=== PATIENT | female | born 2000 | race Caucasian/White ===

== ENCOUNTER → 2019-11-18 | Outpatient (CLI) | payer BC ==
[2019-11-18 12:15] VITALS: BP 93/47
--- NOTE | 2019-11-18 12:15 | ER RDC ASSESSMENT REPORT ---
Intake - In the Last 14 days Have you traveled outside [place]?: No Have you been in close contact with someone CONFIRMED: No Worked in Healthcare?: No - Symptoms Subjective Fever([place] feverish): Yes Chills: Yes Muscule Aches: Yes Runny Nose: Yes Sore Throat: Yes Cough (New or worsening chronic cough): Yes Shortness of breath: Yes Nausea or Vomiting: Yes Headache: Yes Abdominal Pain: No Diarrhea(3 or more loose stools in last 24 hours): No - Do you have any of the following Chronic lung disease: Asthma or emphysema or COPD: No Cystic Fibrosis: No Diabetes: No High Blood Pressure: No Cardiovascular Disease: No Chronic Kidney Disease: No Chronic Liver Disease: No Chronic blood disorder like Sickle Cell Disease: No Weak immune system due to disease or medication: No Neurologic condition that limits movement: No Developmental delay - Moderate to Severe: No Recent (within past 2 weeks) or current : Yes --If current: Trimester: 1st Comment: He is not sure if she is states missed her period has not been to OB at this point Obesity Comment: Height 5 feet weight 90 pounds Other Comment: History of PTSD and OCD - Objective Temperature: 98.5 F Pulse Rate: 90 Respiratory Rate: 20 Blood Pressure: 93/47 O2 Sat by Pulse Oximetry: 98 Objective: Given above, testing performed: If Testing Performed: Test Specimen Type Sent to General - General Information source: Patient Notes: Patient reports started to feel ill on November 14 respiratory like symptoms shortness of breath sore throat and dry cough. Not sure if pregnanent. Has missed a period and has not been to an OB provider at this point. [facility] typically goes to Urgent Care for Primary care and has an appointment for tomorrow. [place] worse today and went to the ED. Bp noted as 93/47. patient reports BP usually higher. Denies nausea or vomiting. Past Medical History - Social History Smoking Status: Current Every Day Smoker Cigarette use (# per day): No - Smokes marijuana Physical Exam - General General appearance: Appears well, Alert In distress: None Notes: PHYSICAL EXAMINATION: GENERAL: Well-appearing and in no acute distress. HEAD: Atraumatic, normocephalic. EYES: sclera anicteric, conjunctiva are normal. ENT: nares patent. Moist mucous membranes. Lips appear dry and cracked. NECK: Normal range of motion, supple without lymphadenopathy LUNGS: CTAB and equal. No wheezes rales or rhonchi. resp even and unlabored. Lung sounds clear. HEART: Regular rate and rhythm without murmurs ABDOMEN: Soft, nontender, normal bowel sounds, no guarding. EXTREMITIES: No cyanosis. NEUROLOGICAL: Normal speech. PSYCH: Normal mood, normal affect. SKIN: Warm, Dry, normal turgor, Diagnostic Results Laboratory Results: Patient instructed on negative rapid strep and negative rapid flu results. Pending strep culture pending COVID testing results. Patient given instructions regarding COVID to include; as a person under investigation for Covid 19, the [facility], division of public health advises you to adhere to the following guidance until your test results are reported to you. If your test result is positive, you will receive additional information from your provider and your local health department at that time. Remain at home until you are cleared by the health provider or public health authorities. Keep a log of visitors to your home, notify any visitors to your home of your isolation status. If you plan to move to a new address or leave the county, notify the local health department in your County. Call your doctor or seek care if you have an urgent medical need. Before seeking medical care, call ahead to get instructions from the provider before arriving at the medical office clinic or hospital. Notify them that you are being tested for the virus that causes Covid 19 so that arrangements can be made, as necessary, to prevent transmission to others in the healthcare setting. Next, notify the local health department in your county. If a medical emergency arises and you need to call 911, inform the first responders that you are being tested for the virus that causes Covid 19. Next, notify the local health department in your county. Patient Education/Counseling Counseling/Education: Patient presents with upper respiratory symptoms worrisome for possible Covid 19. Patient does not have emergency worring symptoms such as difficulty breathing, shortness of breath, chest pain, pressure, confusion or cyanosis. Patient appears suitable for discharge. Patient instructed to return to ED for persistent or worsening symptoms. Instructed to follow up with OB as well. Patient's vital signs are stable and patient is nontoxic in appearance. Good return precautions have been discussed with patient, patient verbalized understanding and is agreeable with discharge plan of care at this time. C Discharge - Discharge Clinical Impression: COVID - 19 SCREENING Upper respiratory infection Qualifiers: URI type: unspecified URI Qualified Code(s): J06.9 - Acute upper respiratory infection, unspecified Condition: Stable Disposition: Home; Selfcare
[2019-11-18 14:07] LABS: A TYPE INFLUENZA AG NEGATIVE (NEGATIVE); B INFLUENZA AG NEGATIVE (NEGATIVE)
== END ==
LOC: RDC 11:06
PROVIDERS: ATTEND Nurse Practitioner Family
DX: J06.9 Acute upper respiratory infection, unspecified (principal); Z20.828 Contact with and (suspected) exposure to other viral communicable diseases; R50.9 Fever, unspecified; J02.9 Acute pharyngitis, unspecified; R05 Cough; R06.02 Shortness of breath; M79.10 Myalgia, unspecified site; R09.89 Other specified symptoms and signs involving the circulatory and respiratory systems; R51 Headache; R11.11 Vomiting without nausea; F12.90 Cannabis use, unspecified, uncomplicated
CPT/HCPCS: 87070; 87635; 87804; 87880

== ENCOUNTER 2019-12-27 14:56 | Emergency (ER) | payer BC ==
[2019-12-27] MEDS ORDERED: ACETAMINOPHEN 325 MG TABLET PO ONE (15:36)
--- NOTE | 2019-12-27 15:38 | ER Document Report ---
ED Medical Screen (RME) - General Chief Complaint: Flank Pain Stated Complaint: LEFT FLANK PAIN,PAINFUL URINATION Time Seen by Provider: 12/27/19 15:33 Primary Care Provider: ROCK CARPENTER [Primary Care Provider] - Follow up as needed Mode of Arrival: Ambulatory Information source: Patient Notes: 19-year-old female presented to ED for complaint of left flank pain. She states she has had a history of kidney stones since she was 10 years old. She states her last CT was about 2 years ago. She states she has been having the pain and nausea and vomiting off and on for 3 weeks. She states she has not had any vomiting today. She is not nauseated at this time. She is alert oriented respirations regular nonlabored speaking in full sentences. She states she does not smoke or drink but that she does use pot. States her last menstrual period was December 22. I have greeted and performed a rapid initial assessment of this patient. A comprehensive ED assessment and evaluation of the patient, analysis of test results and completion of medical decision making process will be conducted by an additional ED providers. - Related Data Allergies/Adverse Reactions: levofloxacin [From Levaquin] Allergy (Verified 12/27/19 15:32) Penicillins Allergy (Verified 12/27/19 15:32) Past Medical History - Social History Chew tobacco use (# tins/day): No Frequency of alcohol use: None Drug Abuse: Marijuana Physical Exam - Vital signs Vitals: Temp Pulse Resp BP Pulse Ox 99.0 F 90 16 112/73 97 12/27/19 15:28 12/27/19 15:28 12/27/19 15:28 12/27/19 15:28 12/27/19 15:28 Course - Vital Signs Vital signs: Temp Pulse Resp BP Pulse Ox 99 F 90 16 112/73 97 12/27/19 15:33 12/27/19 15:28 12/27/19 15:28 12/27/19 15:28 12/27/19 15:28 Doctor's Discharge - Discharge Referrals: ROCK CARPENTER [Primary Care Provider] - Follow up as needed
[2019-12-27 16:11] LABS: ABSOLUTE EOSINOPHILS # (AUTO) 0.2 10^3/uL (0.0-0.6); ABSOLUTE LYMPHOCYTES (AUTO) 1.8 10^3/uL (0.5-4.7); ABSOLUTE MONOCYTES (AUTO) 0.5 10^3/uL (0.1-1.4); ABSOLUTE NEUT (AUTO) 2.5 10^3/uL (1.7-8.2); BASOPHILS % (AUTO) 0.8 % (0-2); EOSINOPHILS % (AUTO) 3.6 % (0-6); HEMATOCRIT 39.5 % (36.0-47.0); LYMPHOCYTES % (AUTO) 36.2 % (13-45); MEAN CORPUSCULAR HEMOGLOBIN 28.2 pg (27.0-33.4); MEAN CORPUSCULAR VOLUME 85 fl (80-97); MONOCYTES % (AUTO) 8.9 % (3-13); PLATELET COUNT 244 10^3/uL (150-450); RED BLOOD COUNT 4.62 10^6/uL (3.72-5.28); RED CELL DISTRIBUTION WIDTH 14.6 % (11.5-14.0); SEGMENTED NEUTROPHILS % (AUTO) 50.5 % (42-78); TOTAL CELLS COUNTED % (AUTO) 100 %; WHITE BLOOD COUNT 5.1 10^3/uL (4.0-10.5)
[2019-12-27 16:26] LABS: APPEARANCE,URINE CLOUDY; BILIRUBIN,URINE NEGATIVE (NEGATIVE); COLOR,URINE YELLOW; GLUCOSE, URINE NEGATIVE (NEGATIVE); KETONES,URINE TRACE mg/dL (NEGATIVE); LEUKOCYTE ESTERASE,URINE SMALL (NEGATIVE); NITRITE,URINE NEGATIVE (NEGATIVE); PROTEIN,URINE 100 mg/dL (NEGATIVE); URINE SPECIFIC GRAVITY 1.025
[2019-12-27 16:30] LABS: ALBUMIN 4.3 g/dL (3.5-5.0); ALKALINE PHOSPHATASE 74 U/L (38-126); ANION GAP 8 (5-19); ASPARTATE AMINO TRANSFERASE 18 U/L (14-36); BILIRUBIN,TOTAL 0.4 mg/dL (0.2-1.3); BLOOD UREA NITROGEN 8 mg/dL (7-20); CALCIUM 9.4 mg/dL (8.4-10.2); CARBON DIOXIDE 29 mmol/L (22-30); CHLORIDE 101 mmol/L (98-107); GLUCOSE 101 mg/dL (75-110); POTASSIUM 4.4 mmol/L (3.6-5.0)
[2019-12-27] MEDS ORDERED: CEFTRIAXONE 1 GM/D5W RTU 1 GM/50 ML RTUPB IV ONE (18:00)
--- NOTE | 2019-12-27 18:00 | ER Document Report ---
ED GI/ - General Chief Complaint: Flank Pain Stated Complaint: LEFT FLANK PAIN,PAINFUL URINATION Time Seen by Provider: 12/27/19 15:33 Primary Care Provider: ROCK CARPENTER [NO LOCAL MD] - Follow up as needed Mode of Arrival: Ambulatory Notes: CHIEF COMPLAINT: Left flank pain for 3 weeks HPI: 19-year-old female with a history of UTIs and kidney stones presenting to the emergency department complaining of progressively worsening left flank pain over the last 3 weeks. Patient states it does not feel like a kidney stone pain is been progressive she did feel like she had a bladder infection 1.5 weeks ago when she took Azo for this with some resolution of symptoms. Has not had fever nausea vomiting but having progressively worsening left lower quadrant left flank discomfort similar to prior kidney infections. ROS: See HPI - all other systems were reviewed and are otherwise negative Constitutional: no fever Eyes: no drainage, no blurred vision ENT: no runny nose, no sore throat Cardiovascular: no chest pain Resp: no SOB, no cough GI: no vomiting, no diarrhea, + abdominal pain : no dysuria Integumentary: no rash Allergy: no hives Musculoskeletal: no extremity pain or swelling Neurological: no incontinence of urine or bowel MEDICATIONS: I agree with the patient medications as charted by the RN. ALLERGIES: I agree with the allergies as charted by the RN. PAST MEDICAL HISTORY/PAST SURGICAL HISTORY: Reviewed and agree as charted by RN. SOCIAL HISTORY: Reviewed and agree as charted by RN. FAMILY HISTORY: No significant familial comorbid conditions directly related to patient complaint EXAM: Reviewed vital signs as charted by RN. CONSTITUTIONAL: Alert and oriented and responds appropriately to questions. Well-appearing; well-nourished HEAD: Normocephalic; atraumatic EYES: PERRL; Conjunctivae clear, sclerae non-icteric ENT: normal nose; no rhinorrhea; moist mucous membranes; pharynx without lesions noted, no uvula edema or deviation, no tonsillar hypertrophy, phonation normal NECK: Supple without meningismus; non-tender; no cervical lymphadenopathy, no ma sses CARD: RRR; no murmurs, no clicks, no rubs, no gallops; symmetric distal pulses RESP: Normal chest excursion without splinting or tachypnea; breath sounds clear and equal bilaterally; no wheezes, no rhonchi, no rales, pulse oximetry 97% on room air not hypoxic ABD/GI: Normal bowel sounds; non-distended; soft, mild tenderness to the left lower quadrant left flank on palpation, no rebound, no guarding; no palpable organomegaly or masses. BACK: The back appears normal and is non-tender to palpation, there is mild left CVA tenderness EXT: Normal ROM in all joints; non-tender to palpation; no cyanosis, no effusions, no edema SKIN: Normal color for age and race; warm; dry; good turgor; no acute lesions noted NEURO: Moves all extremities equally; Motor and sensory function intact PSYCH: The patient's mood and manner are appropriate. Grooming and personal hygiene are appropriate. MDM: 19-year-old female with history of UTI kidney stone and kidney infections presenting with left flank pain progressively worsening over the last 3 weeks. Clinically has pyelonephritis. Her lab work obtained in the triage process does not show evidence of significant leukocytosis or renal impairment. She does appear to have a UTI. Discussed at length with the patient. She is allergic to Levaquin and also to penicillins. Has never had Rocephin per the patient. We will give her Rocephin here in the emergency department she would prefer no imaging today if possible. She is aware we cannot completely rule out a renal abscess at this time although she has no high fever tachycardia or leukocytosis suggesting this. She is aware if her condition does worsen even on antibiotics that she will need to return for reevaluation and probable imaging studies. Patient is in agreement with this plan - Related Data Allergies/Adverse Reactions: levofloxacin [From Levaquin] Allergy (Verified 12/27/19 15:32) Penicillins Allergy (Verified 12/27/19 15:32) Past Medical History - General Information source: Patient - Social History Smoking Status: Never Smoker Chew tobacco use (# tins/day): No Frequency of alcohol use: None Drug Abuse: Marijuana Family History: Reviewed & Not Pertinent Patient has homicidal ideation: No Physical Exam - Vital signs Vitals: Temp Pulse Resp BP Pulse Ox 99.0 F 90 16 112/73 97 12/27/19 15:28 12/27/19 15:28 12/27/19 15:28 12/27/19 15:28 12/27/19 15:28 Course - Re-evaluation Re-evalutation: 12/27/19 18:25 Patient has had no reaction to the Rocephin. Will discharge to stay on Keflex. Patient incidentally mentions that for several months she has been having discharge from the nipples bilaterally with no breast pain or skin changes. No headache. There are is a large differential for this. We discussed this at length. She will follow-up with [facility] for further evaluation of this issue. We specifically discussed return instructions regarding the flank pain and pyelonephritis - Vital Signs Vital signs: Temp Pulse Resp BP Pulse Ox 99 F 90 16 112/73 97 12/27/19 15:33 12/27/19 15:28 12/27/19 15:28 12/27/19 15:28 12/27/19 15:28 - Laboratory Result Diagrams: 12/27/19 15:50 12/27/19 15:50 Laboratory results interpreted by me: 12/27/19 12/27/19 15:50 16:05 RDW 14.6 H Urine Protein 100 H Urine Ketones TRACE H Urine Blood LARGE H Urine Urobilinogen 2.0 H Ur Leukocyte Esterase SMALL H Urine Ascorbic Acid 40 H Discharge - Discharge Clinical Impression: Pyelonephritis, Nipple discharge Condition: Stable Disposition: HOME, SELF-CARE Additional Instructions: Follow-up closely with [facility] for further evaluation of both the nipple discharge and the pyelonephritis. Take the Keflex as prescribed. If you develop fever greater than 101 or progressively worsening flank pain you will need to return to the emergency department as discussed for reevaluation. Prescriptions: Cephalexin Monohydrate [Keflex 500 mg Capsule] 500 mg PO Q6H 10 Days #40 capsule Referrals: JESI WASHBURN MD [ACTIVE STAFF] - Follow up as needed
[2019-12-27 19:14] VITALS: BP 103/60
== END 2019-12-27 19:13 | disposition home or self-care (01) ==
LOC: ER 14:56
DX: N12 Tubulo-interstitial nephritis, not specified as acute or chronic (principal); N64.52 Nipple discharge; Z87.442 Personal history of urinary calculi; Z88.1 Allergy status to other antibiotic agents; Z88.0 Allergy status to penicillin
CPT/HCPCS: 99284; 96365; 36415; 84703; 85025; 80053; 81001; J0696

== ENCOUNTER 2020-01-06 23:07 | Emergency (ER) | payer BC ==
[2020-01-06 23:28] VITALS: BP 112/73
--- NOTE | 2020-01-07 00:08 | ER Document Report ---
ED Medical Screen (RME) - General Chief Complaint: Flank Pain Stated Complaint: FLANK PAIN Primary Care Provider: DEMETRIO CORCORAN MD [Primary Care Provider] - Follow up as needed Notes: Patient is a 19-year-old white female with a history of pyelonephritis and prior kidney stones who presents to the emergency department with a chief complaint of bilateral flank pain. She states she was seen here about a week and a half ago and diagnosed with pyelonephritis. She was given Rocephin here in the emergency department and told to continue Keflex at home. She states she just began the Keflex about 3 days ago and feels like she is progressively worsening. She states between discharge and beginning her medicine 3 days ago she just felt like she was too busy to take the antibiotics and forgot about them. She states as the pain began to worsen it reminded her that she needed to begin the medications. She is been on the Keflex 3 days and feels despite this she is getting worse. States that she was told to return if her symptoms worsen. She denies any fever, nausea, vomiting, diarrhea, chills, night sweats, vaginal bleeding or discharge. I have treated and performed a rapid initial assessment of this patient. A comprehensive ED assessment and evaluation of the patient, analysis of test results and completion of medical decision making process will be conducted by additional ED providers. PHYSICAL EXAMINATION: GENERAL: Well-appearing, well-nourished and in no acute distress. A&Ox4. Answers questions appropriately. - Related Data Allergies/Adverse Reactions: levofloxacin [From Levaquin] Allergy (Verified 12/27/19 15:32) Penicillins Allergy (Verified 12/27/19 15:32) Physical Exam - Vital signs Vitals: Temp Pulse Resp BP Pulse Ox 98.6 F 76 16 112/73 100 01/06/20 23:24 01/06/20 23:24 01/06/20 23:24 01/06/20 23:24 01/06/20 23:24 Course - Vital Signs Vital signs: Temp Pulse Resp BP Pulse Ox 98.6 F 76 16 112/73 100 01/06/20 23:24 01/06/20 23:24 01/06/20 23:24 01/06/20 23:24 01/06/20 23:24 Doctor's Discharge - Discharge Referrals: DEMETRIO CORCORAN MD [Primary Care Provider] - Follow up as needed
[2020-01-07 00:44] LABS: APPEARANCE,URINE CLEAR; BILIRUBIN,URINE NEGATIVE (NEGATIVE); COLOR,URINE STRAW; GLUCOSE, URINE NEGATIVE (NEGATIVE); KETONES,URINE NEGATIVE (NEGATIVE); PROTEIN,URINE NEGATIVE (NEGATIVE); URINE SPECIFIC GRAVITY 1.005; UROBILINOGEN,URINE NEGATIVE mg/dL (<2.0)
== END 2020-01-07 00:55 | disposition left against medical advice (07) ==
LOC: ER 23:07
DX: Z53.20 Procedure and treatment not carried out because of patient's decision for unspecified reasons (principal); R10.9 Unspecified abdominal pain; Z88.0 Allergy status to penicillin; Z88.8 Allergy status to other drugs, medicaments and biological substances
CPT/HCPCS: 81001; 99281